=== PATIENT | female | born 1965 | race Native Hawaiian/Other Pacific Islander ===

== ENCOUNTER 2019-04-16 12:39 | Outpatient (CLI) | payer BC ==
[2019-04-16 13:06] LABS: PLATELET COUNT 303 K/uL (152-353)
[2019-04-16 13:14] LABS: POTASSIUM 3.9 mmol/L (3.6-5.2)
== END 2019-04-16 23:59 ==
LOC: LABW 12:39
PROVIDERS: Internal Medicine
DX: I12.9 Hypertensive chronic kidney disease with stage 1 through stage 4 chronic kidney disease, or unspecified chronic kidney disease (principal); N18.2 Chronic kidney disease, stage 2 (mild); E11.9 Type 2 diabetes mellitus without complications; R31.9 Hematuria, unspecified
CPT/HCPCS: 80053; 84100; 85027

== ENCOUNTER 2021-03-14 09:19 | Outpatient (CLI) | payer OTHER ==
[2021-03-14 09:37] LABS: PLATELET COUNT 255 K/uL (152-353)
[2021-03-14 09:57] LABS: POTASSIUM 3.8 mmol/L (3.6-5.2)
== END 2021-03-14 19:27 | disposition home or self-care (01) ==
LOC: LABW 09:19
PROVIDERS: ATTEND Internal Medicine
DX: E11.9 Type 2 diabetes mellitus without complications (principal); E78.5 Hyperlipidemia, unspecified
CPT/HCPCS: 36415; 80053; 80061; 81000; 82043; 82570; 83036; 84439; 84443; 85027

== ENCOUNTER 2021-07-20 14:23 | Outpatient (CLI) | payer OTHER ==
[2021-07-20 15:08] LABS: PLATELET COUNT 245 K/uL (152-353)
[2021-07-20 15:18] LABS: POTASSIUM 3.8 mmol/L (3.6-5.2)
== END 2021-07-20 20:27 | disposition home or self-care (01) ==
LOC: LABW 14:23
PROVIDERS: ATTEND Internal Medicine
DX: E11.9 Type 2 diabetes mellitus without complications (principal)
CPT/HCPCS: 36415; 80053; 80061; 83036; 84439; 84443; 85027; 86430

== ENCOUNTER → 2022-09-29 | Outpatient (CLI) | payer OTHER ==
[2022-09-29 22:17] LABS: PLATELET COUNT 307 K/uL (152-353)
[2022-09-29 22:44] LABS: POTASSIUM 3.9 mmol/L (3.6-5.2)
== END ==
LOC: LABW 21:49
PROVIDERS: ATTEND Internal Medicine
DX: E11.9 Type 2 diabetes mellitus without complications (principal)
CPT/HCPCS: 36415; 80053; 80061; 81000; 82043; 83036; 84439; 84443; 85027

== ENCOUNTER 2023-03-08 00:54 | Emergency (ER) | payer OTHER ==
[~2023-03-08] VITALS: Ht 167.6 cm; Wt 72.6 kg
[2023-03-08 00:55] VITALS: TEMP 97.9
[2023-03-08 01:23] LABS: PLATELET COUNT 349 K/uL (152-353)
[2023-03-08 01:35] LABS: POTASSIUM 3.2 mmol/L (3.6-5.2)
[2023-03-08 02:30] VITALS: BP 112/56
== END 2023-03-08 02:30 | disposition home or self-care (01) ==
LOC: ED 00:54
PROVIDERS: Family Medicine
DX: R55 Syncope and collapse (principal)
CPT/HCPCS: 80053; 80307; 81000; 82948; 84484; 85027; 93005; 96360; 96372; 99284; J2550

== ENCOUNTER 2023-05-14 14:02 | Outpatient (CLI) | payer OTHER ==
[2023-05-14 14:49] LABS: PLATELET COUNT 293 K/uL (152-353)
[2023-05-14 14:52] LABS: POTASSIUM 3.7 mmol/L (3.6-5.2)
== END 2023-05-14 21:27 | disposition home or self-care (01) ==
LOC: LABW 14:02
PROVIDERS: ATTEND Internal Medicine
DX: E11.9 Type 2 diabetes mellitus without complications (principal)
CPT/HCPCS: 36415; 80053; 80061; 81000; 83036; 84439; 84443; 85027